=== PATIENT | male | born 1955 | race Caucasian/White ===

== ENCOUNTER 2021-10-20 07:24 | Day surgery (SDC) | payer MEDICARE, BC ==
[~2021-10-20 07:24] MED LIST: Lactated Ringers 1,000 ML IV SCH
--- NOTE | 2021-10-20 08:30 | PCM.PREANE ---
Preanesthetic Assessment - Anesthesia/Transfusion/Family Hx Anesthesia History: No Prior Anesthesia Transfusion History: No Prior Transfusion(s) - Review of Systems General: No Symptoms Pulmonary: No Symptoms Cardiovascular: No Symptoms Gastrointestinal: No Symptoms Neurological: No Symptoms Other: Reports: None - Physical Assessment NPO Status Date: 10/20/21 NPO Status Time: 00:00 Vital Signs: Last Vital Signs Temp 97.5 F 10/20/21 07:56 Pulse 82 10/20/21 07:56 Resp 14 10/20/21 07:56 BP 147/93 H 10/20/21 07:56 Pulse Ox 97 10/20/21 07:56 Height: 6 ft Weight: 242 lb ASA Class: 2 Mental Status: Alert & Oriented x3 Airway Class: Mallampati = 2 Dentition: Reports: Normal Dentition Thyro-Mental Finger Breadths: 3 Mouth Opening Finger Breadths: 3 ROM/Head Extension: Full Lungs: Clear to Auscultation, Normal Respiratory Effort Cardiovascular: Regular Rate, Regular Rhythm - Allergies Allergies/Adverse Reactions: Allergies Allergy/AdvReac Type Severity Reaction Status Date / Time No Known Allergies Allergy Verified 10/16/21 11:22 - Acknowledgements Anesthesia Type Planned: General Anesthesia Pt an Appropriate Candidate for the Planned Anesthesia: Yes Alternatives and Risks of Anesthesia Discussed w Pt/Guardian: Yes Pt/Guardian Understands and Agrees with Anesthesia Plan: Yes PreAnesthesia Questionnaire HEENT History: Reports: None Cardiovascular History: Reports: Hypertension Respiratory History: Reports: None Gastrointestinal History: Reports: Other (See Below) Other Gastrointestinal History: currently has diarrhea and abdominal bloating Genitourinary History: Reports: None Musculoskeletal History: Reports: Gout Neurological History: Reports: None Psychiatric History: Reports: None Endocrine/Metabolic History: Reports: Obesity/BMI 30+ Hematologic History: Reports: None Immunologic History: Reports: None Oncologic (Cancer) History: Reports: Basal Cell Carcinoma Other Oncologic History: removed from face - Past Surgical History Head Surgeries/Procedures: Reports: None Dermatological Surgical History: Reports: Skin Biopsy - SUBSTANCE USE Tobacco Use Status *Q: Never Tobacco User Recreational Drug Use History: No - HOME MEDS Home Medications: Home Meds Allopurinol [Zyloprim] 300 mg PO DAILY 10/16/21 [History] Metoprolol Succinate 100 mg PO BEDTIME 10/16/21 [History] - CURRENT (IN HOUSE) MEDS Current Meds: Current Medications Lactated Ringer's (Ringers, Lactated) 1,000 mls @ 125 mls/hr IV ASDIRECTED [facility] Last Admin: 10/20/21 08:07 Dose: 125 mls/hr Documented by:
[2021-10-20] MEDS ORDERED: Propofol 200 MG/20 ML SDV ONE ×4 (09:21→09:49)
[2021-10-20] MEDS ORDERED: fentaNYL 100 MCG/2 ML SDV ONE (09:33)
[2021-10-20] MEDS ORDERED: Midazolam 1 MG/ML 2 ML SDV ONE (09:33)
[2021-10-20] MEDS ORDERED: Lactated Ringers 1,000 ML IV SCH (10:15)
--- NOTE | 2021-10-20 10:23 | PCM.OPNOTE ---
- General Post-Op/Procedure Note Date of Surgery/Procedure: 10/20/21 Operative Procedure(s): Esophagogastroduodenoscopy with antral gastric body and hiatal hernia biopsies. Colonoscopy with biopsy rectosigmoid tumor and cecal polypectomies. Pre Op Diagnosis: Abdominal bloating. Melena. Change in bowel habits Post-Op Diagnosis: Acute and chronic gastritis. Rectosigmoid neoplasm. Cecal polyps. Anesthesia Technique: MAC (ASA II) Primary Surgeon: Ruben Michael Condition: Good Free Text/Narrative:: DICTATION [id number] CPT CODE [id number]
--- NOTE | 2021-10-20 10:40 | PCM.POSTAN ---
POST ANESTHESIA ASSESSMENT - MENTAL STATUS Mental Status: Alert, Oriented - VITAL SIGNS Vital Signs: Last Vital Signs Temp 97.2 F 10/20/21 10:10 Pulse 79 10/20/21 10:32 Resp 20 10/20/21 10:32 BP 106/63 10/20/21 10:32 Pulse Ox 96 10/20/21 10:32 - RESPIRATORY Respiratory Status: Respiratory Rate WNL, Airway Patent, O2 Saturation Stable - CARDIOVASCULAR CV Status: Pulse Rate WNL, Blood Pressure Stable - GASTROINTESTINAL GI Status: No Symptoms - POST OP HYDRATION Hydration Status: Adequate & Stable
--- NOTE | 2021-10-20 10:41 | PCM48HPAN ---
Post Anesthesia Note - EVALUATION WITHIN 48HRS OF ANESTHETIC Vital Signs in Normal Range: Yes Patient Participated in Evaluation: Yes Respiratory Function Stable: Yes Airway Patent: Yes Cardiovascular Function Stable: Yes Hydration Status Stable: Yes Pain Control Satisfactory: Yes Nausea and Vomiting Control Satisfactory: Yes Mental Status Recovered: Yes Vital Signs: Last Vital Signs Temp 97.2 F 10/20/21 10:10 Pulse 79 10/20/21 10:32 Resp 20 10/20/21 10:32 BP 106/63 10/20/21 10:32 Pulse Ox 96 10/20/21 10:32
[2021-10-20] MEDS ORDERED: Glycopyrrolate 0.2 MG/ML SDV ONE (11:07)
[2021-10-20] MEDS ORDERED: ePHEDrine 50 MG/ML SDV ONE (11:07)
[2021-10-20] MEDS ORDERED: Atropine 1 MG/ML SDV ONE (11:07)
--- NOTE | 2021-10-20 17:03 | OR ---
SURGEON: Ruben Michael M.D. DATE OF PROCEDURE: 10/20/2021 OPERATION PERFORMED: Esophagogastroduodenoscopy with biopsy. PRIMARY SURGEON: Ruben Michael M.D. ANESTHESIA: MAC. ASA CLASSIFICATION: II. PREOPERATIVE DIAGNOSES: 1. Abdominal bloating. 2. Melena. POSTOPERATIVE DIAGNOSIS: Acute on chronic gastritis. DESCRIPTION OF PROCEDURE: The patient was taken to the endoscopy room and positioned on the endoscopy table in the left lateral decubitus position. Time-out was called for appropriate identification of the patient and procedure. Monitored anesthesia care was provided. The bite block was placed between the patient's teeth. The gastroscope was inserted through the bite block into the oropharynx and advanced without difficulty through the esophagus and stomach into the duodenum where examination was now carried out in a retrograde fashion. The duodenum showed no acute inflammatory changes or ulcerations. The stomach did show a very prominent gastritis throughout its entire length and multiple biopsies from different sites were obtained. Antral biopsies were obtained to look for the presence of Helicobacter pylori. The gastroscope was then retroflexed to visualize the proximal stomach. The patient did have a hiatal hernia that was noted primarily from above with again significant acute inflammatory changes and separate biopsies of the greater curve and hiatal hernia were obtained. Once the gastroscope was withdrawn to the GE junction, the GE junction was well defined and showed no acute inflammatory changes or ulcerations. The esophagus does show good contractility with no mid or proximal lesions. The vocal cords were briefly visualized as the scope was withdrawn and noted to move symmetrically. The gastroscope was then removed with the patient having tolerated the procedure well. Following colonoscopy, he was taken to recovery room. NOEL YORK /[id number]
--- NOTE | 2021-10-20 17:23 | OR ---
SURGEON: Ruben Michael M.D. DATE OF PROCEDURE: 10/20/2021 OPERATION PERFORMED: Colonoscopy with biopsy of rectosigmoid tumor and cecal polypectomy. PRIMARY SURGEON: Ruben Michael M.D. ANESTHESIA: MAC. ASA CLASSIFICATION: II. PREOPERATIVE DIAGNOSES: 1. Abdominal bloating. 2. Abnormal CT scan with sigmoid colon thickening. 3. Melena. POSTOPERATIVE DIAGNOSIS: Rectosigmoid tumor beginning approximately 15 cm from the anus, extending to 20 cm, involving at least 80% of the circumference. DESCRIPTION OF PROCEDURE: With the patient having completed upper GI endoscopy, he was maintained in the left lateral decubitus position. The colonoscope was inserted into the rectum, and once we reached 20 cm, there was a nearly obstructing neoplasm. It was necessary to change scopes and go with a smaller diameter scope. I was very gently able to get above the tumor and advance the colonoscope all the way to the cecum where several small polyps were encountered and removed with cold biopsy forceps. The colonoscope was retroflexed to visualize the ascending colon from below, then straightened, and slowly withdrawn. The remainder of the ascending colon, hepatic flexure, transverse colon, splenic flexure, descending colon, and proximal and mid sigmoid colon showed no tumors, polyps, diverticula, or angiodysplastic changes. Again, beginning approximately 20 cm to 22 cm from the anal verge, there was a nearly circumferential aggressive-appearing neoplasm. Multiple biopsies of this area were obtained. The distal margin appeared to be at approximately 16 cm to 17 cm. The colonoscope was withdrawn to the distal rectum and retroflexed to visualize the anal orifice from above. No tumors or polyps were seen and no acute hemorrhoidal changes were noted. The colonoscope was then straightened, the rectum aspirated, and the colonoscope removed. The patient tolerated the procedure well and was taken to recovery room in stable condition. NOEL / CHELA /[id number]
== END 2021-10-20 11:19 | disposition home or self-care (01) ==
LOC: MW.SDS 07:24
PROVIDERS: ATTEND Surgery
DX: C19 Malignant neoplasm of rectosigmoid junction (principal); D12.0 Benign neoplasm of cecum; B96.81 Helicobacter pylori [H. pylori] as the cause of diseases classified elsewhere; K31.A0 Gastric intestinal metaplasia, unspecified; K29.50 Unspecified chronic gastritis without bleeding; K44.9 Diaphragmatic hernia without obstruction or gangrene; F41.9 Anxiety disorder, unspecified; M10.9 Gout, unspecified; E78.00 Pure hypercholesterolemia, unspecified; I10 Essential (primary) hypertension; E66.9 Obesity, unspecified; G47.00 Insomnia, unspecified; Z79.899 Other long term (current) drug therapy; Z98.890 Other specified postprocedural states
CPT/HCPCS: 43239; 45380; J2704; J3010; J7120; 00813; 88305; 88341; 88342; J0461; J2250; J3490

== ENCOUNTER 2022-04-30 05:14 | Emergency (ER) | payer MEDICARE, BC ==
[2022-04-30] MEDS ORDERED: Sodium Chloride 0.9% 1,000 ML IV ONE (05:33)
[2022-04-30] MEDS ORDERED: Ondansetron 4 MG Tab.DIS PO STA (05:46)
[2022-04-30 06:45] LABS: CARBON DIOXIDE,CO2 20.2 mmol/L (21.0-32.0); POTASSIUM,K 3.9 mmol/L (3.5-5.1)
[2022-04-30] MEDS ORDERED: Sulfamethoxazole/Trimethoprim 800-160 MG Tab PO ONE (08:02)
[2022-04-30] MEDS ORDERED: Phenazopyridine 200 MG Tab PO ONE (08:06)
[2022-04-30] MEDS ORDERED: Heparin Sodium 100 Units/ML 3 ML Syringe FLUSH STA (09:19)
== END 2022-04-30 09:28 | disposition home or self-care (01) ==
LOC: MW.ED 05:14
DX: N39.0 Urinary tract infection, site not specified (principal); I10 Essential (primary) hypertension; M10.9 Gout, unspecified; E66.9 Obesity, unspecified; Z68.33 Body mass index [BMI] 33.0-33.9, adult; Z79.899 Other long term (current) drug therapy
CPT/HCPCS: 36415; 80053; 81001; 85025; 87086; 87088; 87186; 96360; 96361; 99283; A9270; J1642; J7030

== ENCOUNTER 2024-01-27 08:33 | Day surgery (SDC) | payer MEDICARE, OTHER ==
[~2024-01-27 08:33] MED LIST changes: -Lactated Ringers 1,000 ML IV SCH; +Lidocaine 2% 5 ML SDV ONE; +propofoL 50 ML ONE
[2024-01-27] MEDS: Lactated Ringers 1,000 ML IV SCH (08:50)
== END 2024-01-27 10:58 | disposition home or self-care (01) ==
LOC: MW.SDS 08:33
PROVIDERS: ATTEND Surgery
DX: D12.5 Benign neoplasm of sigmoid colon (principal); F41.9 Anxiety disorder, unspecified; C19 Malignant neoplasm of rectosigmoid junction; E78.00 Pure hypercholesterolemia, unspecified; I10 Essential (primary) hypertension; K92.1 Melena; G47.00 Insomnia, unspecified; K63.9 Disease of intestine, unspecified; M10.9 Gout, unspecified; Z79.899 Other long term (current) drug therapy
CPT/HCPCS: 45380; J2704; J7120; J3490

== ENCOUNTER 2025-04-14 12:47 | Emergency (ER) | payer MEDICARE, OTHER ==
[2025-04-14] MEDS ORDERED: Sodium Chloride 0.9% 2.5 ML Syringe FLUSH PRN (13:40)
[2025-04-14] MEDS ORDERED: Sodium Chloride 0.9% 20 ML SDV IV PRN (13:40)
[2025-04-14] MEDS ORDERED: Sodium Chloride 0.9% 10 ML Syringe FLUSH PRN (13:40)
[2025-04-14] MEDS: Sodium Chloride 0.9% 1,000 ML IV STA (13:50)
[2025-04-14] MEDS: Ketorolac 30 MG/ML SDV IVPUSH ONE (13:52)
[2025-04-14 14:33] LABS: BASOPHILS ABSOLUTE AUTO 0.06 K/uL (0.00-0.20); BASOPHILS PERCENT AUTO 0.8 % (0.0-1.0); EOSINOPHILS ABSOLUTE AUTO 0.12 K/uL (0.00-0.45); EOSINOPHILS PERCENT AUTO 1.5 % (0.0-6.0); HEMATOCRIT 43.4 % (42.0-52.0); HEMOGLOBIN 14.9 g/dL (14.0-18.0); IMMATURE GRAN ABSOLUTE AUTO 0.02 K/uL (0.00-0.05); IMMATURE GRAN PERCENT AUTO 0.3 % (0.0-0.4); LYMPHOCYTES ABSOLUTE AUTO 2.21 K/uL (1.00-4.80); LYMPHOCYTES PERCENT AUTO 28.4 % (24.0-44.0); MEAN CORPUSCULAR HEMOGLOBIN 31.5 pg (28.0-32.0); MEAN CORPUSCULAR HGB CONC 34.3 g/dL (32.0-36.0); MEAN CORPUSCULAR VOLUME 91.8 fL (83.0-99.0); MEAN PLATELET VOLUME 10.1 fL (9.4-12.4); MONOCYTES ABSOLUTE AUTO 0.74 K/uL (0.00-0.80); MONOCYTES PERCENT AUTO 9.5 % (0.0-8.0); NEUTROPHILS ABSOLUTE AUTO 4.62 K/uL (1.80-7.70); NEUTROPHILS PERCENT AUTO 59.5 % (41.0-71.0); PLATELET COUNT,PLT 214 K/uL (150-400); RED BLOOD CELL COUNT 4.73 M/uL (4.52-5.90); WHITE BLOOD CELL COUNT,WBC 7.77 K/uL (3.9-11.3)
[2025-04-14 14:42] LABS: A/G RATIO 1.4 (0.9-1.6); ALBUMIN 4.6 g/dL (3.4-5.0); BILIRUBIN TOTAL 0.5 mg/dL (0.2-1.0); CALCIUM 9.8 mg/dL (8.5-10.1); CARBON DIOXIDE,CO2 29.5 mmol/L (21.0-32.0); CREATININE 1.4 mg/dL (0.8-1.3); EST CRCL DRUG DOSING (CG) 54.66 mL/min; POTASSIUM,K 4.4 mmol/L (3.5-5.1); PROTEIN TOTAL,TP 7.9 g/dL (6.4-8.2)
[2025-04-14 15:06] LABS: APPEARANCE,URINE CLEAR; BILIRUBIN,URINE NEGATIVE (NEGATIVE); COLOR,URINE YELLOW; GLUCOSE,URINE NEGATIVE (NEGATIVE); KETONES,URINE NEGATIVE (NEGATIVE); LEUKOCYTE ESTERASE,URINE NEGATIVE (NEGATIVE); NITRITE,URINE NEGATIVE (NEGATIVE); OCCULT BLOOD,URINE SMALL (NEGATIVE); PH,URINE 5.5 (5.0-8.0); PROTEIN,URINE NEGATIVE (NEGATIVE); UROBILINOGEN,URINE 0.2 EU/dL (<2.0)
[2025-04-14 15:15] LABS: BACTERIA,URINE NOT SEEN (NEGATIVE); EPITHELIAL CELLS,URINE RARE (NONE-FEW); WBC,URINE 0-1 (0-5/HPF)
[2025-04-14 17:16] LABS: CALCIUM 9.3 mg/dL (8.5-10.1); CARBON DIOXIDE,CO2 28.3 mmol/L (21.0-32.0); CREATININE 1.3 mg/dL (0.8-1.3); EST CRCL DRUG DOSING (CG) 58.86 mL/min; POTASSIUM,K 4.8 mmol/L (3.5-5.1)
== END 2025-04-14 17:45 | disposition home or self-care (01) ==
LOC: MW.ED 12:47
DX: N13.2 Hydronephrosis with renal and ureteral calculous obstruction (principal); N40.1 Benign prostatic hyperplasia with lower urinary tract symptoms; I10 Essential (primary) hypertension; E66.9 Obesity, unspecified; Z79.899 Other long term (current) drug therapy; Z68.31 Body mass index [BMI] 31.0-31.9, adult
CPT/HCPCS: 36415; 74150; 80048; 80053; 81001; 83690; 85025; 96361; 96374; 99284; J1885; J7030; 99283